=== PATIENT | female | born 1995 | race African-American/Black ===

== ENCOUNTER 2018-07-23 16:59 | Emergency (ER) | payer OTHER ==
[~2018-07-23] VITALS: Ht 157.5 cm; Wt 65.3 kg
[2018-07-23 17:56] VITALS: BP 109/66
== END 2018-07-23 18:23 | disposition home or self-care (01) ==
LOC: ER 16:59
DX: J02.8 Acute pharyngitis due to other specified organisms (principal); J45.909 Unspecified asthma, uncomplicated
CPT/HCPCS: 99283; A4606

== ENCOUNTER 2022-03-29 05:36 | Emergency (ER) | payer OTHER ==
[~2022-03-29] VITALS: Ht 157.5 cm; Wt 65.8 kg
--- NOTE | 2022-03-29 05:57 | NUR ---
Symone spangler in [facility] - 03/29/22 at 0617 by ADAIR rt RAMOS
--- NOTE | 2022-03-29 05:58 | NUR ---
Dr. Diehl at pt bedside
[2022-03-29] MEDS ORDERED: predniSONE 50 MG TABLET PO ONE (06:00)
[2022-03-29] MEDS ORDERED: IPRATROPIUM NEB FS 0.5 MG/2.5 ML AMPUL.NEB NEB ONE (06:00)
[2022-03-29] MEDS ORDERED: ALBUTEROL FS 2.5 MG/3 ML VIAL.NEB NEB ONE (06:00)
[2022-03-29] MEDS ORDERED: PRED50TA PO (06:03)
[2022-03-29] MEDS ORDERED: ALBU18HF2 INH (06:03)
--- NOTE | 2022-03-29 06:08 | NUR ---
BIBS FOR COUGH AND TROUBLE BREATHING. ON RA. HX OF ASTHMA, RAN OUT OF INHALERS VSS. Hx of asthma. Pt claims asthma is exacerbated due to having a cold. Wheezing heard upon auscultation. AOx4. Pt is ambulatory with a steady gait
[2022-03-29] MEDS ORDERED: ALBUTEROL FS 2.5 MG/3 ML VIAL.NEB ONE (06:14)
[2022-03-29] MEDS ORDERED: IPRATROPIUM NEB FS 0.5 MG/2.5 ML AMPUL.NEB ONE (06:14)
--- NOTE | 2022-03-29 06:19 | NUR ---
RT AT PT BEDSIDE FOR BREATHING TX
[2022-03-29] MEDS ORDERED: predniSONE 20 MG TABLET ONE ×2 (06:23→06:25)
--- NOTE | 2022-03-29 06:28 | NUR ---
PT WAS GIVEN PREDNISONE 60MG PO
--- NOTE | 2022-03-29 06:49 | NUR ---
Patient discharged to home in stable condition. Written and verbal after care instructions given. Patient verbalizes understanding of instruction.
[2022-03-29 06:51] VITALS: BP 120/69
== END 2022-03-29 06:48 | disposition home or self-care (01) ==
LOC: ER 05:38
DX: J45.909 Unspecified asthma, uncomplicated (principal)
CPT/HCPCS: 99283; 94640; J7512